=== PATIENT | female | born 1975 | race Two or more races ===

== ENCOUNTER 2021-05-02 07:36 | Day surgery (SDC) | payer OTHER ==
[~2021-05-02 07:36] MED LIST: DAILY VALUE1 EACH PO
[2021-05-02] MEDS ORDERED: PERCOCET 5-3251 EACH PO (10:16)
== END 2021-05-02 14:10 | disposition home or self-care (01) ==
LOC: CIR.AMB 07:36
PROVIDERS: ATTEND Surgery
DX: C73 Malignant neoplasm of thyroid gland (principal); Z20.822 Contact with and (suspected) exposure to COVID-19